=== PATIENT | male | born 1985 | race Caucasian/White ===

== ENCOUNTER 2023-04-03 09:45 | Outpatient (RCR) | payer OTHER, SELFPAY ==
--- NOTE | 2023-03-20 15:26 | OT.OP.EVAL ---
Visit Care Team Role Provider Type Patricia Mane PA-C Attending Provider Non-Staff Family Provider Primary Care Provider Referring Provider Specialty: Medical Address: [address] , [place], [address] Fax: Email: Occupational Therapy Initial Evaluation OT Outpatient Adult Evaluation Start: 03/20/23 15:00 Freq: Status: Active Protocol: Document 03/20/23 15:00 AMS (Rec: 03/20/23 15:26 AMS [id number]) General Information - Adult Plan of Care Dates 03/20/23 - 05/01/23 Insurance Information Prime; Eval only --> 12 visits Visit Start Time 07:45 Visit Stop Time 08:15 Total Visit Minutes 30 Treatment Setting Outpatient Care Note Type Initial Evaluation Identification Confirmed Yes Identification Confirmed By Patient Goals Short Term Goals 1. Polo will present with improved active range of motion of the R 4th digit at the DIPJ which will support his ability to engage in meaningful activities; he will demonstrate 0 to 65 degrees active range of motion at the R 4th DIPJ. [facility]ci Goals 1. Polo will be modified independent with execution of home exercise program utilizing provided written and visual instructions from therapist. 2. Polo will present with improved ability to engage in and complete meaningful activities of daily living utilizing the dominant hand; this will be evidenced by: 2a. Polo obtaining a score of 15.00 or less on the QuickDASH UE Outcome Measure. 2b. Polo obtaining a score of 15.00 or less on the QuickDASH Perofrming Arts/ Sports Module. 2c. Polo indicating 2 or less out of 10 on the Pain Assessment Grid relative to the R 4th digit. Assessment/Plan Treatment Assessment Polo is a 37 year-old right hand dominant male referred to outpatient OT by PCP secondary to right 4th digit pain/limitations. Medical history significant for arthritis, back pain, jaw pain , and neck pain. 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 He has been actively utilizing the R 4th digit with tasks around the home, including housework, bowling, working on cars, yard work w/ managing tractor, and playing with his 2 kids. Polo indicated 4 out of 10 on Pain Assessment Grid relative to the R 4th digit. QuickDASH UE Outcome Measure Score = 22.73; QuickDASH UE Outcome Measure Work Module Score = 25.00. 0-95 degrees AROM at 4th MCPJ; 0-100 degrees AROM at 4th PIPJ; 0-55 degrees AROM at 4th DIPJ. Full active extension w/ ability to lay hand flat on table. Slight tendency into flexion at PIPJ. 120# of force R trichologist and 145# of force L trichologist w/ dynamometer II trichologist strength test. Difficulty w/ hook fist indicating some intrinsic tightness. (-) complaints of pain/discomfort w/ strength testing and/or resisted 4th digit flexion/ extension. Outpatient OT is recommended to address 4th digit stiffness, ROM, and Polo's ability to successfully engage in and complete functional and meaningful tasks in a variety of environments utilizing the dominant hand, with inclusion of the R 4th digit. Length of treatment (weeks) 6 Plan of Care Start Date 03/20/23 Plan of Care End Date 05/01/23 Treatment Frequency Once a Week Therapeutic Contents Active Range of Motion, Adaptive Equipment Education, Client Education,Cognitive Skills Development,Functional Activities,Home Exercise Program,Joint Protection, Manual Therapy,Education, Neurodevelopment Treatment, Neuromuscular Re-Education, Self-Care,Stretching/ Flexibility Activities, Therapeutic Activities, Therapeutic Exercises, Modalities Modalities As Needed,As Prescribed Additional Types of Modalities Ice/Heat/Paraffin/Contrast baths
--- NOTE | 2023-03-27 14:41 | OT.OP.TRT ---
Visit Care Team Role Provider Type Patricia Mane PA-C Attending Provider Non-Staff Family Provider Primary Care Provider Referring Provider Specialty: Medical Address: [address] , [place], [address] Fax: Email: Occupational Therapy Treatment Note OT Outpatient Treatment Note - Adult Start: 03/20/23 15:00 Freq: Status: Active Protocol: Document 03/27/23 14:34 AMS (Rec: 03/27/23 14:41 AMS [id number]) OT Outpatient Adult Treatment Note Session Time Visit Start Time 07:40 Visit Stop Time 08:08 Total Visit Minutes 28 Visit Information Visit Number [id number] Plan of Care Dates 03/20/23 - 05/01/23 Insurance Information Prime; Eval only --> 12 visits Setting Treatment Setting Outpatient Care Visit Type Note Type Treatment Note General Information General Information Polo is a 37 year-old right hand dominant male referred to outpatient OT by PCP secondary to right 4th digit pain/limitations. Medical history significant for arthritis, back pain, jaw pain , and neck pain. 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 He has been actively utilizing the R 4th digit with tasks around the home, including housework, bowling, working on cars, yard work w/ managing tractor, and playing with his 2 kids. - Subjective Identification Type Name Identification Reconciled With Medical Record Observations Report of utilizing coban w/ positioning of R 4th digit PIP and DIP into flex while completing tasks (4th digit only). Report of carry-over of rec passive range of motion stretch. Report of bowling previous evening w/ active use of the R 4th digit. Patient/Caregiver Compliance with Home Good Exercise Program - Objective Objective Measurements Please refer to below re: progress towards meeting established OT goals: Short Term Goals 1. Polo will present with improved active range of motion of the R 4th digit at the DIPJ which will support his ability to engage in meaningful activities; he will demonstrate 0 to 65 degrees active range of motion at the R 4th DIPJ. Halfway Goals 1. Polo will be modified independent with execution of home exercise program utilizing provided written and visual instructions from therapist. 2. Polo will present with improved ability to engage in and complete meaningful activities of daily living utilizing the dominant hand; this will be evidenced by: 2a. Polo obtaining a score of 15.00 or less on the QuickDASH UE Outcome Measure. 2b. Polo obtaining a score of 15.00 or less on the QuickDASH Perofrming Arts/ Sports Module. 2c. Polo indicating 2 or less out of 10 on the Pain Assessment Grid relative to the R 4th digit. - Treatment 1 Descriptor US x 10 min. 20% pulsed setting. 2.0 w/cm2. Volar surface of R 4th digit distal to PIPJ. Exercises 2 Descriptor Reviewed HEP. 1 Descriptor Provision of extra firm theraputty. - Assessment Assessment of Improvement (+) reported compliance w/ HEP . continued c/o 4th digit weakness and stiffness. Upgraded HEP; provided patient w/ extra firm theraputty for home use. Instructed in care and storage of putty. Outpatient OT is recommended to address 4th digit stiffness , ROM, and Polo's ability to successfully engage in and complete functional and meaningful tasks in a variety of environments utilizing the dominant hand, with inclusion of the R 4th digit. Home Exercise Program 03/27/23 = Instructed in gross digit flexion, isolated 4th digit flexion w/ formation of tulalip/ring, pushing into theraputty w/ 4th digit and then pulling into flexion w/ focus on 4th digit. Provided personal extra firm theraputty for home use; instructed in care and storage of putty. Denial of any questions. - Plan Therapy Recommendations Continue with Current Program, Advance per Rehabilitation Protocol
--- NOTE | 2023-04-03 10:35 | OT.OP.DC ---
Visit Care Team Role Provider Type Patricia Mane PA-C Attending Provider Non-Staff Family Provider Primary Care Provider Referring Provider Address: [address] [place] [address] [address], [place], [address] Fax: Email: OT Outpatient OT Outpatient Adult Evaluation Start: 03/20/23 15:00 Freq: Status: Active Protocol: Document 03/20/23 15:00 AMS (Rec: 03/20/23 15:26 AMS [id number]) General Information - Adult Visit Information Plan of Care Dates 03/20/23 - 05/01/23 Insurance Information Prime; Eval only --> 12 visits Session Time Visit Start Time 07:45 Visit Stop Time 08:15 Total Visit Minutes 30 Setting Treatment Setting Outpatient Care Visit Type Note Type Initial Evaluation Identification Identification Confirmed Yes Identification Confirmed By Patient Goals Short Term Goals Short Term Goals 1. Polo will present with improved active range of motion of the R 4th digit at the DIPJ which will support his ability to engage in meaningful activities; he will demonstrate 0 to 65 degrees active range of motion at the R 4th DIPJ. 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 Polo will be modified independent with execution of home exercise program utilizing provided written and visual instructions from therapist. 2. Polo will present with improved ability to engage in and complete meaningful activities of daily living utilizing the dominant hand; this will be evidenced by: 2a. Polo obtaining a score of 15.00 or less on the QuickDASH UE Outcome Measure. 2b. Polo obtaining a score of 15.00 or less on the QuickDASH Perofrming Arts/ Sports Module. 2c. Polo indicating 2 or less out of 10 on the Pain Assessment Grid relative to the R 4th digit. Assessment/Plan Assessment Treatment Assessment Polo is a 37 year-old right hand dominant male referred to outpatient OT by PCP secondary to right 4th digit pain/limitations. Medical history significant for arthritis, back pain, jaw pain , and neck pain. 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 He has been actively utilizing the R 4th digit with tasks around the home, including housework, bowling, working on cars, yard work w/ managing tractor, and playing with his 2 kids. Polo indicated 4 out of 10 on Pain Assessment Grid relative to the R 4th digit. QuickDASH UE Outcome Measure Score = 22.73; QuickDASH UE Outcome Measure Work Module Score = 25.00. 0-95 degrees AROM at 4th MCPJ; 0-100 degrees AROM at 4th PIPJ; 0-55 degrees AROM at 4th DIPJ. Full active extension w/ ability to lay hand flat on table. Slight tendency into flexion at PIPJ. 120# of force R social sciences chair and 145# of force L social sciences chair w/ dynamometer II social sciences chair strength test. Difficulty w/ hook fist indicating some intrinsic tightness. (-) complaints of pain/discomfort w/ strength testing and/or resisted 4th digit flexion/ extension. Outpatient OT is recommended to address 4th digit stiffness, ROM, and Polo's ability to successfully engage in and complete functional and meaningful tasks in a variety of environments utilizing the dominant hand, with inclusion of the R 4th digit. Plan Length of treatment (weeks) 6 Plan of Care Start Date 03/20/23 Plan of Care End Date 05/01/23 Treatment Frequency Once a Week Therapeutic Contents Active Range of Motion, Adaptive Equipment Education, Client Education,Cognitive Skills Development,Functional Activities,Home Exercise Program,Joint Protection, Manual Therapy,Education, Neurodevelopment Treatment, Neuromuscular Re-Education, Self-Care,Stretching/ Flexibility Activities, Therapeutic Activities, Therapeutic Exercises, Modalities Modalities As Needed,As Prescribed Additional Types of Modalities Ice/Heat/Paraffin/Contrast baths Functional Wrist/Hand Scan Hand Side Sensory Assessment Sensory Profile2 OT Outpatient Treatment Note - Adult Start: 03/20/23 15:00 Freq: Status: Active Protocol: Document 04/03/23 10:25 [facility] (Rec: 04/03/23 10:34 [facility] [id number]) OT Outpatient Adult Treatment Note Session Time Visit Start Time 09:50 Visit Stop Time 10:20 Total Visit Minutes 30 Visit Information Visit Number 11/11 Plan of Care Dates 03/20/23 - 05/01/23 Insurance Information Prime; Eval only --> 12 visits Setting Treatment Setting Outpatient Care Visit Type Note Type Treatment Note General Information General Information Polo is a 37 year-old right hand dominant male referred to outpatient OT by PCP secondary to right 4th digit pain/limitations. Medical history significant for arthritis, back pain, jaw pain , and neck pain. 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 He has been actively utilizing the R 4th digit with tasks around the home, including housework, bowling, working on cars, yard work w/ managing tractor, and playing with his 2 kids. - Subjective Identification Type Name Identification Reconciled With Medical Record Observations 0 out of 10 on the Pain Assessment Grid at rest. 1-2 out of 10 on the Pain Assessment Grid w/ active use of the R hand/4th digit. QuickDASH UE Outcome Measure Score = 4.55; QuickDASH Work Module Score = 0.00; QuickDASH Sports/Performing Arts Module Score = 0.00. Patient/Caregiver Compliance with Home Excellent Exercise Program - Objective Objective Measurements Please refer to below re: progress towards meeting established OT goals: Short Term Goals GOALS MET Polo will present with improved active range of motion of the R 4th digit at the DIPJ which will support his ability to engage in meaningful activities; he will demonstrate 0 to 65 degrees active range of motion at the R 4th DIPJ. *MET 0-80 degrees Livestock Buyer Goals GOALS MET 1. Polo will be modified independent with execution of home exercise program utilizing provided written and visual instructions from therapist. *MET 04/03/23 2. Polo will present with improved ability to engage in and complete meaningful activities of daily living utilizing the dominant hand; this will be evidenced by: 2a. Polo obtaining a score of 15.00 or less on the QuickDASH UE Outcome Measure. *MET 04/03/23 Score = 4.55 2b. Polo obtaining a score of 15.00 or less on the QuickDASH Performing Arts/ Sports Module. *MET 04/03/23 Score = 0.00 2c. Polo indicating 2 or less out of 10 on the Pain Assessment Grid relative to the R 4th digit. - Treatment 1 Descriptor Manual treatment. 4th digit. Focus on PIPJ. Exercises 1 Descriptor 6.6# weighted spherical ball manipulation. - Assessment Assessment of Improvement Polo has met all established outpatient OT goals and is mod independent with execution of home exercise program. He denied any questions re: HEP. Thus, recommend d/c to HEP at this time. - Plan Therapy Recommendations Discharge from Occupational Therapy
== END 2023-06-24 15:29 ==
LOC: OT 09:45
PROVIDERS: Absent Provider Physician Assistant; Family Provider Physician Assistant; PCP Physician Assistant; Referring Provider Physician Assistant; Visit Provider Physician Assistant
DX: M79.644 Pain in right finger(s) (principal); R53.1 Weakness
CPT/HCPCS: 97035; 97110; 97140; 97165